=== PATIENT | male | born 1940 | race Hispanic/Latino ===

== ENCOUNTER 2019-09-17 14:31 | Inpatient (IN) | payer MEDICARE ==
--- NOTE | 2019-09-17 15:04 | Emergency Department Report ---
ED Neuro Deficit HPI - General Chief Complaint: Neuro Symptoms/Deficit Stated Complaint: POSS CVA Time Seen by Provider: 09/17/19 14:38 - History of Present Illness Initial Comments: [facility] Tele[facility]urology Consult [facility] Date of Service: 09/17/2019 14:40:50 Impression: Rule Out Acute Ischemic Stroke Comments/Sign-Out: the patient initially had a left facial droop on arrival which has since resolved. He is now back to baseline which is not oriented necessarily to the month or his exact age. His NIH of stroke scale score therefore is essentially a 0 at this point in time.for this reason he is not a TPA candidate. 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 His blood pressure if truly low in the 80s systolic at home could explain transient neurologic symptoms as well potentially. He's never had a left facial droop however so would treat this like a new acute ischemic stroke syndrome with full stroke workup and inpatient neurology consultation. Mechanism of Stroke: Not Clear Metrics: Last Known Well: 09/17/2019 13:15:00 [facility] Notification Time: 09/17/2019 14:40:19 Arrival Time: 09/17/2019 14:31:00 Stamp Time: 09/17/2019 14:40:50 Time First Login Attempt: 09/17/2019 14:42:45 Video Start Time: 09/17/2019 14:42:45 Symptoms: weakness/left facial droop. NIHSS Start Assessment Time: 09/17/2019 14:47:37 Patient is not a candidate for tPA. Patient was not deemed candidate for tPA thrombolytics because of Resolved symptoms (no residual disabling symptoms). Video End Time: 09/17/2019 14:59:41 CT head showed no acute hemorrhage or acute core infarct. Clinical Presentation is not Suggestive of Large Vessel Occlusive Disease, Patient is not a Candidate for Thrombectomy Radiologist was not called back for review of advanced imaging because na ED Physician notified of diagnostic impression and management plan on 09/17/2019 14:59:48 Our recommendations are outlined below. Recommendations: Activate Stroke Protocol Admission/Order Set Stroke/Telemetry Floor Neuro Checks Bedside Swallow Eval DVT Prophylaxis IV Fluids, Normal Saline Head of Bed Below 30 Degrees Euglycemia and Avoid Hyperthermia (PRN Acetaminophen) Initiate Aspirin 325 MG Daily Recommended Scan: MRI Head MRA Head Without Contrast MRA Neck with and Without Contrast Carotid Dopplers Echocardiogram - Transthoracic Echocardiogram Lipid Panel to Be Obtained, if Not Done in the Last 30 Days Therapies: Physical Therapy, Occupational Therapy, Speech Therapy Assessment When Applicable Dysphaghia Screen: Swallow Evaluation, Bedside NPO Until Swallow Evaluation DVT prophylaxis: Choice of Primary Team Disposition: Neurology Follow Up Recommended Sign Out: Discussed with Emergency Department Provider History of Present Illness: Patient is a 78 year old Male. Patient was brought by EMS for symptoms of weakness/left facial droop. EMS said the patient was cutting grass and at 1:15pm his called saying he had weakness and a left facial droop. He has a hx of prior stroke and HTN. He takes asa daily. He doesn't know why hes here. He is a poor historian. Has a hx of dementia. She said that he had a hard time pronouncing his words and she took his BP and it was 80 systolic which had her concerned. His prior stroke was 4.5 years ago which was when he was when he was diagnosed with dementia. He typically may not know his age or the month a t his baseline. CT head showed no acute hemorrhage or acute core infarct. Examination: BP(144/72), Blood Glucose(124) 1A: Level of Consciousness - Alert; keenly responsive + 0 1B: Ask Month and Age - Could Not Answer Either Question Correctly + 2 1C: Blink Eyes & Squeeze Hands - Performs Both Tasks + 0 2: Test Horizontal Extraocular Movements - Normal + 0 3: Test Visual Wong - No Visual Loss + 0 4: Test Facial Palsy (Use Grimace if Obtunded) - Normal symmetry + 0 5A: Test Left Arm Motor Drift - No Drift for 10 Seconds + 0 5B: Test Right Arm Motor Drift - No Drift for 10 Seconds + 0 6A: Test Left Leg Motor Drift - No Drift for 5 Seconds + 0 6B: Test Right Leg Motor Drift - No Drift for 5 Seconds + 0 7: Test Limb Ataxia (FNF/Heel-Guillen) - No Ataxia + 0 8: Test Sensation - Normal; No sensory loss + 0 9: Test Language/Aphasia - Normal; No aphasia + 0 10: Test Dysarthria - Normal + 0 11: Test Extinction/Inattention - No abnormality + 0 NIHSS Score: 2 Patient was informed the Neurology Consult would happen via TeleHealth consult by way of interactive audio and video telecommunications and consented to receiving care in this manner. Due to the immediate potential for life-threatening deterioration due to und erlying acute neurologic illness, I spent 35 minutes providing critical care. This time includes time for face to face visit via telemedicine, review of medical records, imaging studies and discussion of findings with providers, the patient and/or family. Dr Kate England [facility] ED Review of Systems ROS: Stated complaint: POSS CVA Other details as noted in HPI ED Neuro Physical Exam - General Suspected Stroke: Yes - NIHSS Assessment Interval: Baseline 1a. Level of Consciousness: alert/keenly responsive 1b. LOC Questions: answers no questions correctly 1c. LOC Commands: performs tasks correctly 2. Best Gaze: normal 3. Visual: no visual loss 4. Facial Palsy: normal symmetrical movement 5b. Motor Arm Right: no drift 5a. Motor Arm Left: no drift 6a. Motor Leg Left: no drift 6b. Motor Leg Right: no drift 7. Limb Ataxia: absent 8. Sensory: normal 9. Best Language: no aphasia 10. Dysarthria: normal 11. Extinction/Inattention: no abnormality Total Score: 2 Stroke Severity: Minor Stroke Critical care attestation.: If time is entered above; I have spent that time in minutes in the direct care of this critically ill patient, excluding procedure time. ED Disposition Clinical Impression: Stroke (cerebrum) Qualifiers: CVA mechanism: unspecified Qualified Code(s): I63.9 - Cerebral infarction, unspecified Disposition: DC-09 OP ADMIT IP TO THIS HOSP Is pt being admited?: Yes Condition: Stable
--- NOTE | 2019-09-17 15:24 | Cat Scan Report ---
CT BRAIN: 09/17/2019 INDICATION / CLINICAL INFORMATION: Left-sided weakness. Speech disturbance.. COMPARISON: None available. FINDINGS: BRAIN/INTRACRANIAL STRUCTURES: Unenhanced CT images of the brain were obtained. There is a 2.5 cm area of hypoattenuation involving the upper anterior left frontal cortex, consisten t with ischemic injury of indeterminate age, although likely to be subacute or chronic. There is no other areas of acute or chronic ischemic injury. Ventricles and sulci are prominent in size, consistent with diffuse cerebral atrophy. There is no evidence of hemorrhage or mass. There are no abnormal extra-axial fluid collections. Atherosclerotic vascular calcifications are present in the distal internal carotid arteries and verte bral arteries. EXTRACRANIAL STRUCTURES: Unremarkable. IMPRESSION: Focal area of hypoattenuation in left frontal cortex and subcortical white matter, consistent with s ubacute or chronic ischemic injury. No evidence of hemorrhage. Chronic and age-related changes. Findings discussed with Dr. Rodriguez at [address] scans at this location are performed using dose reduction to ALARA by means of automated expos ure control. Signer Name: John Paul Alcocer MD Signed: 09/17/2019 3:20 PM Workstation Name: [id number]
--- NOTE | 2019-09-17 15:41 | Emergency Department Report ---
ED Neuro Deficit HPI - General Chief Complaint: Neuro Symptoms/Deficit Stated Complaint: POSS CVA Time Seen by Provider: 09/17/19 14:38 Source: patient Mode of arrival: Ambulatory Limitations: No Limitations - History of Present Illness Initial Comments: This is a 78-year-old male with a history of dementia. states he has been previously advised that he should not mow his lawn by physician. However the states that he seemed to be doing better and now he is mowing his lawn again. In any case he was out mowing his lawn and came in the hospital thirsty. The states that he did not look right. She gave him some water and he complained of weakness. She took his blood pressure and states it might of been in the 80s although she is somewhat nonspecific about that. She next noticed that he appeared to have slight left facial drooping. The patient did not complain of focal weakness or facial numbness. called EMS. EMS thought he might have some left-sided weakness and facial paresis. He did not failed the test of drift however. His exam at the door did indicate some very slight facial asymmetry. He was sent for CT evaluation as a code stroke. The patient was seen by tele-neurologist. Tele-neurologist thought he had a subtle left facial paresis which resolved during their exam. On reassessment, I found the patient to have an NIH stroke score of 0 lacking any signs of facial asymmetry. Thus he was considered not to be a candidate for TPA. Tele- neurology did recommend admission for complete stroke work-up but no further emergency imaging. A CT of the head showed an old left frontal stroke, atrophy and no signs of acute intracranial process. -: Gradual Location: left face History of same: Yes ( states TIA 4 years ago) Place: home Severity: mild Quality: weak Improves With: time Worsens With: none On Anticoagulants: No Context: gradual onset Associated Symptoms: denies other symptoms - Related Data Home Medications: Home Medications Medication Instructions Recorded Confirmed Last Taken Aspirin [Aspirin BABY CHEW TAB] 81 mg PO QDAY 09/17/19 09/17/19 Unknown Ezetimibe [Zetia] 10 mg PO QDAY 09/17/19 09/17/19 Unknown Losartan Potassium 100 mg PO QDAY 09/17/19 09/17/19 Unknown Memantine HCl 10 mg PO BID 09/17/19 09/17/19 Unknown Allergies/Adverse Reactions: Allergies Allergy/AdvReac Type Severity Reaction Status Date / Time No Known Allergies Allergy Unverified 09/17/19 15:07 ED Review of Systems ROS: Stated complaint: POSS CVA Other details as noted in HPI Comment: Unobtainable due to pts medical conditions (Patient with moderate dementia, he has no specific complaint.) ED Past Medical Hx - Past Medical History Previous Medical History?: Yes Hx Hypertension: Yes Hx CVA: Yes Additional medical history: Alzheimer's - Surgical History Past Surgical History?: No - Social History Smoking Status: Never Smoker Substance Use Type: None - Medications Home Medications: Home Medications Medication Instructions Recorded Confirmed Last Taken Type Aspirin [Aspirin BABY CHEW TAB] 81 mg PO QDAY 09/17/19 09/17/19 Unknown History Ezetimibe [Zetia] 10 mg PO QDAY 09/17/19 09/17/19 Unknown History Losartan Potassium 100 mg PO QDAY 09/17/19 09/17/19 Unknown History Memantine HCl 10 mg PO BID 09/17/19 09/17/19 Unknown History ED Neuro Physical Exam - General Limitations: Other (Dementia) General appearance: alert, in no apparent distress Suspected Stroke: Yes - Head Head exam: Present: atraumatic, normocephalic - Eye Eye exam: Present: normal appearance. Absent: scleral icterus - ENT ENT exam: Present: mucous membranes moist, other (Initially there was a suggestion of left facial asymmetry., The left palpebral fissure looked a bit larger than the right. There was very slight asymmetry of the oral commissure.) - Neck Neck exam: Present: normal inspection. Absent: tenderness, meningismus - Respiratory Respiratory exam: Present: normal lung sounds bilaterally. Absent: respiratory distress - Cardiovascular Cardiovascular Exam: Present: regular rate, normal rhythm. Absent: systolic murmur, diastolic murmur, rubs, gallop - GI/Abdominal GI/Abdominal exam: Present: soft, normal bowel sounds. Absent: distended, tenderness, guarding, rebound, rigid - Rectal Rectal exam: Present: deferred - Extremities Exam Extremities exam: Present: normal inspection - Back Exam Back exam: Present: normal inspection - Neurological Exam Neurological exam: Present: alert, oriented X3. Absent: CN II-XII intact, motor sensory deficit - NIHSS Assessment Interval: Baseline 1a. Level of Consciousness: alert/keenly responsive 1b. LOC Questions: answers 1 question correctly 1c. LOC Commands: performs tasks correctly 2. Best Gaze: normal 3. Visual: no visual loss 4. Facial Palsy: minor paralysis 5b. Motor Arm Right: no drift 5a. Motor Arm Left: no drift 6a. Motor Leg Left: no drift 6b. Motor Leg Right: no drift 7. Limb Ataxia: absent 8. Sensory: normal 9. Best Language: no aphasia 10. Dysarthria: normal 11. Extinction/Inattention: no abnormality (On reexamination the facial paresis resolved. The patient's orientation is at his baseline as he does not know the month chronically.) Total Score: 2 Stroke Severity: Minor Stroke - Psychiatric Psychiatric exam: Present: normal mood, flat affect - Skin Skin exam: Present: warm, dry, intact, normal color. Absent: rash ED Course Vital Signs 09/17/19 09/17/19 09/17/19 15:12 15:16 15:57 Temperature 98.1 F Pulse Rate 74 80 90 Respiratory 15 11 L 15 Rate Blood Pressure 133/68 Blood Pressure 144/72 132/63 [Left] O2 Sat by Pulse 100 100 100 Oximetry - Reevaluation(s) Reevaluation #1: As above, rapidly resolving neurological syndrome. 09/17/19 16:21 - Lab Data Result diagrams: 09/17/19 14:55 09/17/19 14:55 Lab Results 09/17/19 09/17/19 09/17/19 Range/Units 14:55 14:55 14:55 WBC 16.3 H (4.5-11.0) K/mm3 RBC 4.68 (3.65-5.03) M/mm3 Hgb 13.6 (11.8-15.2) gm/dl Hct 41.1 (35.5-45.6) % MCV 88 (84-94) fl MCH 29 (28-32) pg MCHC 33 (32-34) % RDW 13.2 (13.2-15.2) % Plt Count 276 (140-440) K/mm3 Lymph % (Auto) 4.0 L (13.4-35.0) % [place] % (Auto) 6.3 (0.0-7.3) % Eos % (Auto) 0.1 (0.0-4.3) % Baso % (Auto) 0.1 (0.0-1.8) % Lymph # 0.6 L (1.2-5.4) K/mm3 [place] # 1.0 H (0.0-0.8) K/mm3 Eos # 0.0 (0.0-0.4) K/mm3 Baso # 0.0 (0.0-0.1) K/mm3 Seg Neutrophils % 89.5 H (40.0-70.0) % Seg Neutrophils # 13.8 H (1.8-7.7) K/mm3 PT 14.2 (12.2-14.9) Sec. INR 1.09 (0.87-1.13) APTT 28.6 (24.2-36.6) Sec. Thrombin Time 16.4 (15.1-19.6) Sec. Sodium 138 (137-145) mmol/L Potassium 4.3 (3.6-5.0) mmol/L Chloride 99.6 (98-107) mmol/L Carbon Dioxide 22 (22-30) mmol/L Anion Gap 21 mmol/L BUN 28 H (9-20) mg/dL Creatinine 1.8 H (0.8-1.5) mg/dL Estimated GFR 37 ml/min BUN/Creatinine Ratio 16 % Glucose 100 (75-100) mg/dL Calcium 9.6 (8.4-10.2) mg/dL Magnesium (1.7-2.3) mg/dL Total Bilirubin (0.1-1.2) mg/dL Direct Bilirubin (0-0.2) mg/dL Indirect Bilirubin mg/dL AST (5-40) units/L ALT (7-56) units/L Alkaline Phosphatase (35-129) units/L Ammonia (25-60) umol/L Total Creatine Kinase 191 H (55-170) units/L CK-MB (CK-2) 4.7 H (0.0-4.0) ng/mL CK-MB (CK-2) Rel Index 2.4 (0-4) Troponin T < 0.010 (0.00-0.029) ng/mL Total Protein (6.3-8.2) g/dL Albumin (3.9-5) g/dL Albumin/Globulin Ratio % 09/17/19 09/17/19 Range/Units 14:55 14:55 WBC (4.5-11.0) K/mm3 RBC (3.65-5.03) M/mm3 Hgb (11.8-15.2) gm/dl Hct (35.5-45.6) % MCV (84-94) fl MCH (28-32) pg MCHC (32-34) % RDW (13.2-15.2) % Plt Count (140-440) K/mm3 Lymph % (Auto) (13.4-35.0) % [place] % (Auto) (0.0-7.3) % Eos % (Auto) (0.0-4.3) % Baso % (Auto) (0.0-1.8) % Lymph # (1.2-5.4) K/mm3 [place] # (0.0-0.8) K/mm3 Eos # (0.0-0.4) K/mm3 Baso # (0.0-0.1) K/mm3 Seg Neutrophils % (40.0-70.0) % Seg Neutrophils # (1.8-7.7) K/mm3 PT (12.2-14.9) Sec. INR (0.87-1.13) APTT (24.2-36.6) Sec. Thrombin Time (15.1-19.6) Sec. Sodium (137-145) mmol/L Potassium (3.6-5.0) mmol/L Chloride (98-107) mmol/L Carbon Dioxide (22-30) mmol/L Anion Gap mmol/L BUN (9-20) mg/dL Creatinine (0.8-1.5) mg/dL Estimated GFR ml/min BUN/Creatinine Ratio % Glucose (75-100) mg/dL Calcium (8.4-10.2) mg/dL Magnesium 2.20 (1.7-2.3) mg/dL Total Bilirubin 0.40 (0.1-1.2) mg/dL Direct Bilirubin < 0.2 (0-0.2) mg/dL Indirect Bilirubin 0.2 mg/dL AST 17 (5-40) units/L ALT 9 (7-56) units/L Alkaline Phosphatase 66 (35-129) units/L Ammonia 41.0 (25-60) umol/L Total Creatine Kinase (55-170) units/L CK-MB (CK-2) (0.0-4.0) ng/mL CK-MB (CK-2) Rel Index (0-4) Troponin T (0.00-0.029) ng/mL Total Protein 6.9 (6.3-8.2) g/dL Albumin 4.3 (3.9-5) g/dL Albumin/Globulin Ratio 1.7 % - EKG Data -: EKG Interpreted by Me EKG shows normal: sinus rhythm, axis, intervals, QRS complexes, ST-T waves Rate: normal Interpretation: no acute changes - Radiology Data Radiology results: image reviewed (Discussed with radiologist as above) - Thrombolytic Inclusion/Exclusion Thrombolytic Exclusion Criteria: Onset of Symptoms Unknown (Not a candidate for TPA due to NIHSS of 0) Critical care attestation.: If time is entered above; I have spent that time in minutes in the direct care of this critically ill patient, excluding procedure time. ED Disposition Clinical Impression: TIA (transient ischemic attack) Stroke (cerebrum) Qualifiers: CVA mechanism: unspecified Qualified Code(s): I63.9 - Cerebral infarction, unspecified Disposition: DC-09 OP ADMIT IP TO THIS HOSP Is pt being admited?: Yes Does the pt Need Aspirin: Yes Condition: Stable Referrals: PRIMARY CARE, [Primary Care Provider] - 3-5 Days Time of Disposition: 16:22
--- NOTE | 2019-09-17 15:48 | XRay Report ---
CHEST 1 VIEW INDICATION / CLINICAL INFORMATION: HTN. COMPARISON: None available. FINDINGS: SUPPORT DEVICES: None. HEART / MEDIASTINUM: No significant abnormality. LUNGS / PLEURA: Mild bibasilar subsegmental atelectasis. No focal pulmonary consolidation. No pleural effusion. No pneumothorax. ADDITIONAL FINDINGS: No significant additional findings. IMPRESSION: 1. No acute findings. Signer Name: Araceli Jordan MD Signed: 09/17/2019 3:43 PM Workstation Name: [id number]
[2019-09-17 15:50] LABS: Hematocrit 41.1 % (35.5-45.6); Hemoglobin 13.6 gm/dl (11.8-15.2); Mean Corpuscular HGB Conc 33 % (32-34); Mean Corpuscular Volume 88 fl (84-94); Red Blood Count 4.68 M/mm3 (3.65-5.03); Red Cell Distribution Width 13.2 % (13.2-15.2)
[2019-09-17 15:57] LABS: Basophils % (Auto) 0.1 % (0.0-1.8); Eosinophils % (Auto) 0.1 % (0.0-4.3); Lymphocytes # (Auto) 0.6 K/mm3 (1.2-5.4); Monocytes % (Auto) 6.3 % (0.0-7.3); Platelet Count 276 K/mm3 (140-440)
[2019-09-17 16:00] LABS: INR 1.09 (0.87-1.13); Partial Thromboplastin Time 28.6 Sec. (24.2-36.6); Thrombin Time 16.4 Sec. (15.1-19.6)
[2019-09-17 16:04] LABS: Creatine Kinase MB 4.7 ng/mL (0.0-4.0)
[2019-09-17 16:05] LABS: BUN/Creatinine Ratio 16; Blood Urea Nitrogen 28 mg/dL (9-20); Calcium 9.6 mg/dL (8.4-10.2); Hemolysis Index 5
[2019-09-17 16:06] LABS: Alanine Aminotransferase 9 units/L (7-56); Albumin 4.3 g/dL (3.9-5)
[2019-09-17 16:14] LABS: Bilirubin,Direct < 0.2 mg/dL (0-0.2)
[2019-09-17] MEDS ORDERED: ASPIRIN 325 MG TAB PO ONE (16:23)
[2019-09-17 16:41] LABS: Bilirubin,Urine NEG (Negative); Blood,Urine NEG (Negative); Color,Urine Yellow (Yellow); Mucus,Urine FEW /HPF; Protein,Urine <15 mg/dL mg/dL (Negative); Urobilinogen,Urine < 2.0 mg/dL (<2.0)
[2019-09-17] MEDS ORDERED: ASPIRIN 325 MG TAB ONE (17:44)
--- NOTE | 2019-09-18 02:14 | Event Note ---
Date: 09/17/19 See history and physical in the reports TIA
[2019-09-18] MEDS ORDERED: ACETAMINOPHEN 325 MG TAB PO PRN (02:19)
[2019-09-18] MEDS ORDERED: oxyCODONE /ACETAMINOPHEN 5-325MG TAB PO PRN (02:19)
[2019-09-18] MEDS ORDERED: HYDROmorphone 1 MG/1 ML INJ IV PRN (02:19)
[2019-09-18] MEDS ORDERED: ONDANSETRON 4 MG/2 ML INJ IV PRN (02:19)
--- NOTE | 2019-09-18 03:28 | History and Physical Report ---
CHIEF COMPLAINT: 1. Low blood pressure. 2. Left facial droop. HISTORY OF PRESENT ILLNESS: A 78-year-old male brought in by for low blood pressure and left facial droop. The patient also has some weakness on the left side. The symptoms have improved while in the Emergency Room. Because of the time lapse, patient was not considered to be a candidate for TPA. Left-sided weakness has improved and the left facial weakness has improved. PAST MEDICAL HISTORY: Hypertension, cerebrovascular accident, and Alzheimer's. PAST SURGICAL HISTORY: None. SOCIAL HISTORY: Does not smoke. FAMILY HISTORY: Hypertension. CURRENT MEDICATIONS: Losartan and Zetia and Namenda. REVIEW OF SYSTEMS: Significant for left-sided facial weakness and left upper and lower extremity weakness, which has resolved while in the Emergency Room. Otherwise, review of systems negative. PHYSICAL EXAMINATION: GENERAL: Elderly male, cooperative during examination. VITAL SIGNS: Blood pressure 127/64, temperature 98, pulse 67, respirations 15. HEENT: Unremarkable. Left facial droop, resolved. NECK: Supple, no lymphadenopathy, no thyromegaly. LUNGS: Clear to auscultation and percussion. Good air entry. CARDIOVASCULAR: S1, S2 heard. No gallop, no murmur, no rub. Apical impulse in left fifth intercostal space and midclavicular line. ABDOMEN: Soft and benign. No hepatosplenomegaly. No guarding, no rigidity. Hernial orifices are normal. EXTREMITIES: Good pedal pulses. No pedal edema. CENTRAL NERVOUS SYSTEM: No focal weakness. Left facial and left upper extremity, lower extremity weakness resolved while in the Emergency Room. LABORATORY DATA: Significant for a white count of 16,300, otherwise CBC was normal. Electrolytes are normal. BUN and creatinine is 28 and 1.8. IMAGING STUDIES: CT of the head unremarkable. ASSESSMENT AND PLAN: 1. Transient ischemic attack, transient ischemic attack workup. MRI of brain, echocardiogram, and carotid duplex scan ordered. Neurology consult ordered. CT of the head shows focal area of hypoattenuation in the left frontal cortex and subcortical white matter consistent with subacute or chronic ischemic injury in the frontal lobe. No evidence of hemorrhage. 2. Hypertension. Continue antihypertensives in the form of losartan. 3. Hyperlipidemia. Continue Zetia. 4. Dementia, early, continue Namenda. 5. Deep venous thrombosis prophylaxis, heparin 5000 q. 12. JOB# [id number] CARROLL/NOAH
[2019-09-18 06:57] LABS: Calcium 9.2 mg/dL (8.4-10.2)
--- NOTE | 2019-09-18 09:41 | Progress Note ---
Subjective Date of service: 09/18/19 Interval history: parient evaluated at time of the stroke alert/ reviewed the hx from the EMT';s he had attack of near syncope/ right facial weakness/ and aphasia thought to yolie possible TIA/Stroke prior hx of stroke ... checked the CT at time of admission,,, there is old white/vidal matter disease and prior hx stroke CT did not show hemorrhage or mass lesion Objective - Vital Sign Vital Signs - 12hr 09/17/19 09/18/19 09/18/19 23:27 00:19 03:32 Temperature 98.0 F 98.0 F Pulse Rate 63 56 L 64 Respiratory 18 18 Rate Blood Pressure 116/62 121/51 O2 Sat by Pulse 95 94 Oximetry 09/18/19 09/18/19 04:30 07:35 Temperature Pulse Rate 55 L 70 Respiratory Rate Blood Pressure 138/75 O2 Sat by Pulse 97 Oximetry - Laboratory Findings CBC and BMP: 09/17/19 14:55 09/18/19 05:21 Abnormal Lab Findings: Abnormal Labs 09/17/19 09/17/19 09/18/19 14:55 14:55 05:21 WBC 16.3 H Lymph % (Auto) 4.0 L Lymph # 0.6 L [place] # 1.0 H Seg Neutrophils % 89.5 H Seg Neutrophils # 13.8 H Carbon Dioxide 21 L BUN 28 H 26 H Creatinine 1.8 H 1.6 H Total Creatine Kinase 191 H CK-MB (CK-2) 4.7 H
--- NOTE | 2019-09-18 09:45 | Progress Note ---
Subjective Date of service: 09/18/19 Interval history: further comment there is a clear cut old ischemic infarct left frontal white matter lateral in MCA territory... agree with radiology report carotid u/s very important Objective - Vital Sign Vital Signs - 12hr 09/17/19 09/18/19 09/18/19 23:27 00:19 03:32 Temperature 98.0 F 98.0 F Pulse Rate 63 56 L 64 Respiratory 18 18 Rate Blood Pressure 116/62 121/51 O2 Sat by Pulse 95 94 Oximetry 09/18/19 09/18/19 04:30 07:35 Temperature Pulse Rate 55 L 70 Respiratory Rate Blood Pressure 138/75 O2 Sat by Pulse 97 Oximetry - Laboratory Findings CBC and BMP: 09/17/19 14:55 09/18/19 05:21 Abnormal Lab Findings: Abnormal Labs 09/17/19 09/17/19 09/18/19 14:55 14:55 05:21 WBC 16.3 H Lymph % (Auto) 4.0 L Lymph # 0.6 L [place] # 1.0 H Seg Neutrophils % 89.5 H Seg Neutrophils # 13.8 H Carbon Dioxide 21 L BUN 28 H 26 H Creatinine 1.8 H 1.6 H Total Creatine Kinase 191 H CK-MB (CK-2) 4.7 H
[2019-09-18] MEDS ORDERED: EZETIMIBE 10 MG TAB PO SCH (10:00)
[2019-09-18] MEDS ORDERED: FAMOTIDINE 10 MG TAB PO SCH (10:00)
[2019-09-18] MEDS ORDERED: ASPIRIN 325 MG TAB PO SCH (10:00)
[2019-09-18] MEDS ORDERED: MEMANTINE 10 MG TAB PO SCH (10:00)
[2019-09-18] MEDS ORDERED: NON-FORMULARY EACH (Losartan Potassium [Losartan Potassium] 100 MG) PO SCH (10:00)
[2019-09-18] MEDS ORDERED: LOSARTAN 50 MG TAB PO SCH (10:00)
[2019-09-18] MEDS ORDERED: ASPIRIN 81 MG TAB CHEW PO SCH (10:00)
[2019-09-18] MEDS ORDERED: FAMOTIDINE 20 MG TAB PO SCH (10:00)
--- NOTE | 2019-09-18 10:57 | Progress Note ---
Subjective Date of service: 09/18/19 Interval history: reviewed over history from patient and he does not rememmber the details of the prior stroke of the left MCA checking ECHO and carotid u/s needed will review MRI when available Objective - Vital Sign Vital Signs - 12hr 09/17/19 09/18/19 09/18/19 23:27 00:19 03:32 Temperature 98.0 F 98.0 F Pulse Rate 63 56 L 64 Respiratory 18 18 Rate Blood Pressure 116/62 121/51 O2 Sat by Pulse 95 94 Oximetry 09/18/19 09/18/19 04:30 07:35 Temperature Pulse Rate 55 L 70 Respiratory Rate Blood Pressure 138/75 O2 Sat by Pulse 97 Oximetry - Laboratory Findings CBC and BMP: 09/17/19 14:55 09/18/19 05:21 Abnormal Lab Findings: Abnormal Labs 09/17/19 09/17/19 09/18/19 14:55 14:55 05:21 WBC 16.3 H Lymph % (Auto) 4.0 L Lymph # 0.6 L [place] # 1.0 H Seg Neutrophils % 89.5 H Seg Neutrophils # 13.8 H Carbon Dioxide 21 L BUN 28 H 26 H Creatinine 1.8 H 1.6 H Total Creatine Kinase 191 H CK-MB (CK-2) 4.7 H
[2019-09-18 12:41] VITALS: BP 127/69
--- NOTE | 2019-09-18 14:53 | Discharge Summary ---
Providers - Providers Date of Admission: 09/17/19 16:23 Date of discharge: 09/18/19 Attending physician: TIAGO CARLISLE 09/18/19 02:19 Consult to Physician [CONS] Routine Comment: Consulting Provider: JENNY DUARTE Physician Instructions: Reason For Exam: TIA 09/18/19 02:22 Occupational Therapy Evaluate and Treat [CONS] Routine Comment: Reason For Exam: Neuro deficits Physical Therapy Evaluation and Treat [CONS] Routine Comment: Reason For Exam: Neuro deficits Primary care physician: SUGAR REPROCESS OPERATOR HEAD Hospitalization Condition: Good Hospital course: Patient 78-year-old male with a history of hypertension, dementia presents with an acute episode of left sided weakness and facial droop. Patient symptoms over several hours subsequently resolved. All improved facial droop improved left- sided weakness improved. Cognitively patient improve does have underlying dementia. However maintains some cognition. Patient CT scan showed a focal area of hypoattenuation described as an old CVA. Also confirmed by neurology. Patient already had carotid ultrasound. Patient has MRI pending however will not change the underlying treatment at this particular time which consist of antiplatelet anti-thrombin therapy and control of risk factor reduction. Given the current crisis with theCOVID 19 pandemic the risk of staying here with outweigh any benefits at this time. Therefore will discharge have patient follow-up with outpatient neurology. I did see ultrasound and did not see any evidence of gross blockages. We will follow-up with neurology radiology for final results. Patient also will be discharged home on 325 mg of aspirin. Patient was not taking the 81 mg aspirin only Thursday and . Not really a failed aspirin occurrence. Disposition: TO HOME OR SELFCARE - Discharge Diagnoses (1) TIA (transient ischemic attack) Status: Acute (2) CVA (cerebral vascular accident) Status: Acute Comment: Nonacute treat with aspirin 325 mg antiplatelet . Patient does not need any rehab. Swallowing fine walking fine ambulating well. Core Measure Documentation - Palliative Care Palliative Care/ Comfort Measures: Not Applicable - Core Measures Any of the following diagnoses?: none Exam - Constitutional Vitals: Temp Pulse Resp BP Pulse Ox 98.1 F 69 14 127/69 95 09/18/19 11:04 09/18/19 11:04 09/18/19 11:04 09/18/19 11:04 09/18/19 11:04 General appearance: Present: no acute distress, well-nourished - EENT Eyes: Present: PERRL ENT: hearing intact, clear oral mucosa - Neck Neck: Present: supple, normal ROM - Respiratory Respiratory effort: normal Respiratory: bilateral: CTA - Cardiovascular Heart Sounds: Present: S1 & S2. Absent: rub, click - Extremities Extremities: pulses symmetrical, No edema Peripheral Pulses: within normal limits - Abdominal General gastrointestinal: Present: soft, non-tender, non-distended, normal bowel sounds Male genitourinary: Present: normal - Integumentary Integumentary: Present: clear, warm, dry - Musculoskeletal Musculoskeletal: gait normal, strength equal bilaterally - Psychiatric Psychiatric: appropriate mood/affect, intact judgment & insight - Neurologic Neurologic: CNII-XII intact, moves all extremities Plan Activity: fall precautions Diet: low cholesterol Follow up with: PRIMARY CARE,MD [Primary Care Provider] - 3-5 Days Prescriptions: Aspirin 325 mg PO QDAY #30 tablet AtorvaSTATin [Lipitor] 40 mg PO QHS #30 tablet
--- NOTE | 2019-09-18 15:01 | Vascular Lab Report ---
"DUPLEX DOPPLER ULTRASOUND CAROTID, BILATERAL INDICATION / CLINICAL INFORMATION: stroke. COMPARISON: None available. FINDINGS: RIGHT CAROTID: - PLAQUE ESTIMATE (%): < 50% - CCA velocity: 106 cm/sec. - ICA peak systolic velocity: 118 cm/sec. - ICA/CCA PSV Ratio: 1.1 Right Vertebral Artery: Antegrade flow. LEFT CAROTID: - PLAQUE ESTIMATE: < 50% - CCA velocity: 109 cm/sec. - ICA peak systolic velocity: 85 cm/sec. - ICA/CCA PSV Ratio: 0.8 Left Vertebral Artery: Antegrade flow. IMPRESSION: 1. Right Internal Carotid Artery: Less than 50% diameter stenosis. 2. Left Internal Carotid Artery: Less than 50% diameter stenosis. Velocity criteria are extrapolated from diameter data as defined by the Society of Radiologists in [place] [facility] Consensus Conference, Radiology 2003; 229;340-346. Degree of || ICA PSV || Plaque || ICA/CCA Stenosis (%) || (cm/sec) || estimate (%) || PSV Ratio Normal ............. || ...<125........... || ...None......... || ...<2.0 <50................... || ...<125........... || ......<50......... || ...<2.0 50-69................ || ..125-230...... || ......>50......... || 2.0-4.0 >70 but <100... || >230.............. || .......>50........ || ...>4.0 Near occlusion || High/low/none || ...visible....... || variable Total occlusion || ....None........... || ..no lumen... || ....N/A Signer Name: Pawel ALDANA Signed: 09/18/2019 2:57 PM Workstation Name: [id number]"
[2019-09-19 10:04] LABS: Chol/HDL Ratio 3.7 %
--- NOTE | 2019-09-24 11:05 | Consultation ---
HISTORY OF PRESENT ILLNESS: This is a 78-year-old white male that was seen at [facility] and he had presented to the Emergency Room of [facility] with an acute problem with right-sided weakness and aphasia. He was seen in the CT scanner at the time of his admission as he was on a stroke alert. I spoke with [facility]. The patient had at that point presented with onset of right-sided weakness. He apparently was mowing his grass, became hot, had difficulty with his speech. Subsequently, became weak, probably collapsed in his front yard, was not responding to his for several minutes. When she found him, he had apparent aphasia and right-sided weakness. This is a new onset. I did subsequently speak to the patient after admission. He denies having spells prior to that in the past. There is a very conflicting history on this gentleman and that EMS told me that he had had a prior stroke about 1 year previous. I did cross check this history with the patient's history of having a prior stroke was not at all, by his history is accurate. He was evaluated initially with a CT scan and that showed a questionable area in the left frontal area that was indicative of an old infarct. He during his hospitalization had a carotid artery ultrasound and echocardiogram done to assess whether he had an embolic phenomena results of which are pending at the time of the patient's discharge home. He has no known allergies. He is not being under the care of any doctor. He takes no medications. PHYSICAL EXAMINATION: VITAL SIGNS: Blood pressure on my evaluation is 123/80, pulse rate 86, respirations 18. NEUROLOGIC: Cranial nerves 2-12 are intact. Affect is clear. Speech is normal. No drift to extremities present. No sensory loss is noted. No motor loss is present. The patient has full ocular movements. Aphasia screen was negative. IMPRESSION: This patient's history is complicated in that there is conflicting information by outside history he has had a prior stroke, which may account for the low density area in the left frontal lobe. I do not think this is an acute finding. I have reviewed over his studies including his labs which were unremarkable. He clearly did not have a seizure with the incident. EMS did not describe that his blood pressure was normal. He was in sinus rhythm at the time of EMS transported him to the hospital. When he was seen in the CT scan room by myself, he had nearly completely recovered his speech and he had no hemiparesis and no facial weakness. This would tend to indicate that he likely had a TIA. Certainly, he did not have an acute stroke because I would not have expected the area in the left frontal area to have appeared that quickly indicating this is an old static process. Because of the coronavirus pandemic, the patient was desirous of not remaining in the hospital further in order to assess his MRI scan of the brain. This can be done as an outpatient. I spoke with the ED physician, Dr. Javon Machado and he is certainly agreeable with me to follow up as an outpatient. I will try to review the results of his echocardiogram and carotid artery ultrasound at some point to establish a formal reading on these tests. I would point out that the patient's neurological examination showed he had made a complete recovery within about 35 minutes of presenting to the hospital, indicating this entire episode may have simply been a transient ischemic attack. I am recommending for medical therapy including Plavix and aspirin 325 for treatment of this condition with Dr. Glynn. FINAL DISCHARGE DIAGNOSIS: NEUROLOGICAL: 1. Old left frontal lesion, likely representing ischemic stroke, which is chronic, new onset, probably a transient ischemic attack. I do not think this represented a seizure and may even have represented heat prostration. According to the patient's history, he had been mowing his grass and was quite hot and fatigued at the time of the incident when he collapsed in his front yard and this may simply have been heat prostration according to the patient's history directly from him. I planned to follow the patient with you. JOB# [id number] RICKY/NOAH
== END 2019-09-18 15:12 | disposition home or self-care (01) | DRG 69 ==
LOC: ED 14:31 → 4A 16:23
PROVIDERS: ADMIT Internal Medicine; ATTEND Internal Medicine
DX: G45.9 Transient cerebral ischemic attack, unspecified (principal); I82.409 Acute embolism and thrombosis of unspecified deep veins of unspecified lower extremity; G81.94 Hemiplegia, unspecified affecting left nondominant side; F02.81 Dementia in other diseases classified elsewhere, unspecified severity, with behavioral disturbance; R47.01 Aphasia; I10 Essential (primary) hypertension; G30.9 Alzheimer's disease, unspecified; E78.5 Hyperlipidemia, unspecified; R29.810 Facial weakness; Z82.49 Family history of ischemic heart disease and other diseases of the circulatory system
CPT/HCPCS: 36415; 70450; 71045; 80048; 80061; 80076; 81001; 82140; 82550; 82553; 83036; 83735; 84484; 85025; 85610; 85670; 85730; 93005; 93010; 93306; 93880; G0378